=== PATIENT | female | born 1985 | race Caucasian/White ===

== ENCOUNTER → 2017-01-24 | Outpatient (CLI) | payer OTHER | LOC: OD 14:45 | PROVIDERS: ATTEND Physician Assistant Surgical | DX: M54.6 Pain in thoracic spine (principal) | CPT/HCPCS: 72070 ==

== ENCOUNTER 2017-05-25 12:23 | Emergency (ER) | payer OTHER ==
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
[2017-05-25] MEDS ORDERED: KETOROLAC TROMETHAMINE INJ/PF 30 MG/1 ML SDV IM ONE (13:37)
[2017-05-25 13:50] VITALS: BP 125/72
== END 2017-05-25 13:35 | disposition home or self-care (01) ==
LOC: ER 12:23
DX: M54.2 Cervicalgia (principal); M54.5 Low back pain; M62.838 Other muscle spasm; V43.52XA Car driver injured in collision with other type car in traffic accident, initial encounter; G89.29 Other chronic pain; Z79.891 Long term (current) use of opiate analgesic; Z79.899 Other long term (current) drug therapy
CPT/HCPCS: 99283

== ENCOUNTER 2019-04-01 19:37 | Emergency (ER) | payer OTHER ==
[2019-04-01] MEDS ORDERED: METOCLOPRAMIDE HCL ORAL SOLN 10 MG/10 ML UDCUP PO ONE (21:01)
[2019-04-01] MEDS ORDERED: LIDOCAINE 2% VISCOUS SOLN 20 ML UDCUP PO ONE (21:01)
[2019-04-01] MEDS ORDERED: MAG HYDROX/AL HYDROX/SIMETH SUSP 30 ML UDCUP PO ONE (21:01)
[2019-04-01] MEDS ORDERED: NORMAL SALINE 1000 ML 1,000 ML IV ONE (21:03)
--- NOTE | 2019-04-01 21:03 | ER Document Report ---
ED Medical Screen (RME) - General Chief Complaint: Abdominal Pain Stated Complaint: STOMACH PAIN Time Seen by Provider: 04/01/19 20:59 Notes: Patient is a 33-year-old female with extensive history of abdominal surgeries to include gastric bypass, small bowel obstruction and hernia repair. Patient states she has had generalized epigastric abdominal pain for the last 2 weeks. States she also received a cholecystectomy when she had a gastric bypass. Patient is denying any fevers, dysuria, vaginal discharge. GENERAL: Alert, interacts well. No acute distress. ABDOMEN: Soft, generalized epigastric pain noted. Non-distended. Bowel sounds p resent in all 4 quadrants. I have greeted and performed a rapid initial assessment of this patient. A comprehensive ED assessment and evaluation of the patient, analysis of test results and completion of the medical decision making process will be conducted by additional ED providers. I have specifically instructed the patient or family members with the patient to immediately return to any nursing staff should anything change in the patient's condition or with their chief complaint. This medical record was dictated with voice recognizing software. There may be grammatical, syntax errors that are unintended. TRAVEL OUTSIDE OF THE [place] IN LAST 30 DAYS: No - Related Data Allergies/Adverse Reactions: No Known Allergies Allergy (Verified 05/25/17 12:34) Past Medical History Neurological Medical History: Reports: Hx Migraine Renal/ Medical History: Denies: Hx Peritoneal Dialysis Past Surgical History: Reports: Hx Abdominal Surgery - bypass, Hx Section, Hx Cholecystectomy, Hx Orthopedic Surgery - wrist surgery - Immunizations Hx Diphtheria, Pertussis, Tetanus Vaccination: Yes Physical Exam - Vital signs Vitals: Temp Pulse Resp BP Pulse Ox 98.1 F 113 H 16 113/81 97 04/01/19 20:26 04/01/19 20:26 04/01/19 20:04/01/19 20:26 04/01/19 20:26 Course - Vital Signs Vital signs: Temp Pulse Resp BP Pulse Ox 98.1 F 113 H 16 113/81 97 04/01/19 20:26 04/01/19 20:26 04/01/19 20:26 04/01/19 20:26 04/01/19 20:26
[2019-04-01 22:06] LABS: APPEARANCE,URINE CLOUDY; BILIRUBIN,URINE NEGATIVE (NEGATIVE); COLOR,URINE YELLOW; GLUCOSE, URINE 50 mg/dL (NEGATIVE); KETONES,URINE TRACE mg/dL (NEGATIVE); LEUKOCYTE ESTERASE,URINE MODERATE (NEGATIVE); NITRITE,URINE NEGATIVE (NEGATIVE); PROTEIN,URINE 100 mg/dL (NEGATIVE); URINE SPECIFIC GRAVITY 1.034; UROBILINOGEN,URINE NEGATIVE mg/dL (<2.0)
[2019-04-01 22:07] LABS: ABSOLUTE EOSINOPHILS # (AUTO) 0.1 10^3/uL (0.0-0.6); ABSOLUTE MONOCYTES (AUTO) 0.5 10^3/uL (0.1-1.4); ABSOLUTE NEUT (AUTO) 4.9 10^3/uL (1.7-8.2); BASOPHILS % (AUTO) 0.4 % (0-2); EOSINOPHILS % (AUTO) 1.3 % (0-6); HEMATOCRIT 39.4 % (36.0-47.0); HEMOGLOBIN 13.3 g/dL (12.0-15.5); LYMPHOCYTES % (AUTO) 35.2 % (13-45); MEAN CORPUSCULAR HEMOGLOBIN 30.1 pg (27.0-33.4); MEAN CORPUSCULAR HGB CONC 33.8 g/dL (32.0-36.0); MEAN CORPUSCULAR VOLUME 89 fl (80-97); MONOCYTES % (AUTO) 5.8 % (3-13); PLATELET COUNT 405 10^3/uL (150-450); RED BLOOD COUNT 4.42 10^6/uL (3.72-5.28); RED CELL DISTRIBUTION WIDTH 14.4 % (11.5-14.0); SEGMENTED NEUTROPHILS % (AUTO) 57.3 % (42-78); TOTAL CELLS COUNTED % (AUTO) 100 %; WHITE BLOOD COUNT 8.6 10^3/uL (4.0-10.5)
[2019-04-01 22:26] LABS: ALANINE AMINOTRANSFERASE 39 U/L (9-52); ALBUMIN 4.7 g/dL (3.5-5.0); ALKALINE PHOSPHATASE 66 U/L (38-126); ANION GAP 11 (5-19); ASPARTATE AMINO TRANSFERASE 35 U/L (14-36); BILIRUBIN,DIRECT 0.2 mg/dL (0.0-0.4); BILIRUBIN,TOTAL 0.3 mg/dL (0.2-1.3); BLOOD UREA NITROGEN 11 mg/dL (7-20); CALCIUM 9.8 mg/dL (8.4-10.2); CARBON DIOXIDE 29 mmol/L (22-30); CHLORIDE 102 mmol/L (98-107); GLUCOSE 84 mg/dL (75-110); SODIUM 142.3 mmol/L (137-145); TOTAL PROTEIN 7.6 g/dL (6.3-8.2)
[2019-04-01] MEDS ORDERED: ONDANSETRON HCL INJ/PF 4 MG/2 ML SDV IV ONE (23:52)
[2019-04-02] MEDS ORDERED: RINGERS SOLUTION,LACTATED 1,000 ML IV ONE (00:05)
--- NOTE | 2019-04-02 00:58 | ER Document Report ---
ED General - General Chief Complaint: Abdominal Pain Stated Complaint: STOMACH PAIN Time Seen by Provider: 04/01/19 20:59 Primary Care Provider: RANULFO EPSTEIN MD [ACTIVE STAFF] - Follow up in 3-5 days Notes: Patient is a 33-year-old female with history of gastric bypass that presents to the emergency department for chief complaint of epigastric abdominal pain. Patient states she has been having pain in her upper abdomen, worse with food, for the past several weeks, she states she changed her diet, eating smaller meals throughout the day, and shortly after that started having the symptoms, where she has nausea, vomiting, shortly after eating food she feels like nothing is getting through. She does not feel like anything is getting stuck in her throat but feels like if not going past her pouch. She denies having any diarrhea or constipation associated with this. Denies having any fevers, chills, night sweats, headache, lightheadedness or dizziness. Denies any dysuria or hematuria. She states she has had when she thinks is about a 15 pound weight loss over the past month. She currently rates her pain as a 2 out of 10 describes as an aching pain in her epigastric region. Past Medical History: PCOS, chronic low back pain, migraine headaches Past Surgical History: Gastric bypass surgery, laparoscopy, cholecystectomy Social History: Denies current tobacco, alcohol or illicit drug use. Family History: Reviewed and noncontributory for presenting illness Allergies: Reviewed, see documented allergy list. REVIEW OF SYSTEMS: Other than noted above, the 12 point review of systems was reviewed with the patient and were negative, all pertinent findings are included in the HPI. PHYSICAL EXAMINATION: Vital signs reviewed, nursing noted reviewed. GENERAL: Well-appearing, well-nourished and in no acute distress. HEAD: Atraumatic, normocephalic. EYES: Eyes appear normal, extraocular movements intact, sclera anicteric, conjunctiva are normal. ENT: nares patent, oropharynx clear without exudates. Moist mucous membranes. NECK: Normal range of motion, supple without lymphadenopathy LUNGS: Breath sounds clear to auscultation bilaterally and equal. No wheezes rales or rhonchi. HEART: Regular rate and rhythm without murmurs ABDOMEN: Soft, mild epigastric tenderness to palpation, normoactive bowel sounds. No rebound, guarding, or rigidity. No masses appreciated. No palpable hernia with Valsalva. EXTREMITIES: Nontender, good range of motion, no pitting or edema. NEUROLOGICAL: No focal neurological deficits. Moves all extremities spontaneously Motor and sensory grossly intact on exam. PSYCH: Normal mood, normal affect. SKIN: Warm, Dry, normal turgor, no rashes or lesions noted on exposed skin TRAVEL OUTSIDE OF THE [place] IN LAST 30 DAYS: No - Related Data Allergies/Adverse Reactions: No Known Allergies Allergy (Verified 05/25/17 12:34) Past Medical History - Social History Smoking Status: Never Smoker Chew tobacco use (# tins/day): No Frequency of alcohol use: None Drug Abuse: None Family History: Reviewed & Not Pertinent Patient has suicidal ideation: No Patient has homicidal ideation: No Neurological Medical History: Reports: Hx Migraine Renal/ Medical History: Denies: Hx Peritoneal Dialysis Past Surgical History: Reports: Hx Abdominal Surgery - bypass, Hx Section, Hx Cholecystectomy, Hx Orthopedic Surgery - wrist surgery - Immunizations Hx Diphtheria, Pertussis, Tetanus Vaccination: Yes Physical Exam - Vital signs Vitals: Temp Pulse Resp BP Pulse Ox 98.1 F 113 H 16 113/81 97 04/01/19 20:26 04/01/19 20:26 04/01/19 20:26 04/01/19 20:26 04/01/19 20:26 Course - Re-evaluation Re-evalutation: Patient seen and examined vital signs reviewed. Laboratory data and/or imaging were ordered as appropriate for the patient's presenting symptoms and complaint, with consideration of any critical or life threatening conditions that may be associated with their obtained history and exam as noted above. Patient was treated with GI cocktail, IV fluids and Zofran Results were reviewed when available and demonstrated unremarkable work-up, CBC, CMP and lipase are unremarkable, abdominal films were negative as well. The patient was re-evaluated and was stable, appeared comfortable, abdomen is soft, nondistended and nontender. Evaluation was most consistent with epigastric abdominal pain, likely gastritis versus gastroparesis, will prescribe the patient Reglan, and omeprazole and a dvised follow-up with gastroenterology which she was agreeable to. Results were discussed with the patient at this point, after careful consideration I feel that that patient can be discharged from the emergency department, the patient was educated treatments and reasons to return to the emergency department based on their presumed diagnosis as noted above, they were advised to followup with a primary care physician in 2-3 days. Patient was agreeable to plan of care. *Note is created using voice recognition software and may contain spelling, syntax or grammatical errors. Laboratory 04/01/19 04/01/19 04/01/19 21:21 21:21 21:47 WBC 8.6 RBC 4.42 Hgb 13.3 Hct 39.4 MCV 89 MCH 30.1 MCHC 33.8 RDW 14.4 H Plt Count 405 Seg Neutrophils % 57.3 Lymphocytes % 35.2 Monocytes % 5.8 Eosinophils % 1.3 Basophils % 0.4 Absolute Neutrophils 4.9 Absolute Lymphocytes 3.0 Absolute Monocytes 0.5 Absolute Eosinophils 0.1 Absolute Basophils 0.0 Sodium 142.3 Potassium 4.0 Chloride 102 Carbon Dioxide 29 Anion Gap 11 BUN 11 Creatinine 0.52 Est GFR ( Amer) > 60 Est GFR (Non-Af Amer) > 60 Glucose 84 Calcium 9.8 Total Bilirubin 0.3 Direct Bilirubin 0.2 Neonat Total Bilirubin Not Reportable Neonat Direct Bilirubin Not Reportable Neonat Indirect Bili Not Reportable AST 35 ALT 39 Alkaline Phosphatase 66 Total Protein 7.6 Albumin 4.7 Lipase 213.0 Urine Color YELLOW Urine Appearance CLOUDY Urine pH 5.0 Ur Specific [place] 1.034 Urine Protein 100 H Urine Glucose (UA) 50 H Urine Ketones TRACE H Urine Blood NEGATIVE Urine Nitrite NEGATIVE Urine Bilirubin NEGATIVE Urine Urobilinogen NEGATIVE Ur Leukocyte Esterase MODERATE H Urine WBC (Auto) 21 Urine RBC (Auto) 8 Urine Bacteria (Auto) TRACE Squamous Epi Cells Auto 36 Urine Mucus (Auto) MOD Urine Ascorbic Acid NEGATIVE Urine HCG, Qual NEGATIVE Abdomen X-Ray 04/02/19 00:05 IMPRESSION: Nonspecific nonobstructive bowel gas pattern. There is a distended nondilated loop of small bowel in the left hemiabdomen. - Vital Signs Vital signs: Temp Pulse Resp BP Pulse Ox 98.0 F 90 16 118/80 100 04/02/19 01:33 04/02/19 01:33 04/02/19 01:33 04/02/19 01:33 04/02/19 01:33 - Laboratory Result Diagrams: 04/01/19 21:21 04/01/19 21:21 Laboratory results interpreted by me: 04/01/19 04/01/19 21:21 21:47 RDW 14.4 H Urine Protein 100 H Urine Glucose (UA) 50 H Urine Ketones TRACE H Ur Leukocyte Esterase MODERATE H Discharge - Discharge Clinical Impression: Abdominal pain Qualifiers: Abdominal location: epigastric Qualified Code(s): R10.13 - Epigastric pain Vomiting Qualifiers: Vomiting type: unspecified Vomiting Intractability: non-intractable Nausea presence: with nausea Qualified Code(s): R11.2 - Nausea with vomiting, unspecified Condition: Stable Disposition: HOME, SELF-CARE Instructions: Abdominal Pain ([facility]), Vomiting ([facility]) Additional Instructions: Please follow-up with a dye line operator, one has been provided but you can follow-up with the one in [place] that you saw in the past if you are going to be moving back there, please take the prescribed medications as directed, to help with your nausea at home as well as your abdominal pain. If your symptoms wo rsen or are not improving over the next several days, do not hesitate to return to the emergency department. Prescriptions: Metoclopramide HCl [Reglan 10 mg Tablet] 1 tab PO Q8H PRN #25 tablet PRN Reason: nausea/vomiting RX: Omeprazole 40 mg PO DAILY #30 capsule.dr Referrals: RANULFO EPSTEIN MD [ACTIVE STAFF] - Follow up in 3-5 days
--- NOTE | 2019-04-02 01:06 | RADIOLOGY REPORT (SQ) ---
EXAM DESCRIPTION: X-ray abdomen two views CLINICAL DATA: 33-year-old female with epigastric abdominal pain and vomiting. TECHNICAL DATA: Supine and upright views of the abdomen were performed on 04/02/2019 at 12:48 AM. Comparison: None. FINDINGS: The bowel gas pattern is nonspecific and nonobstructive. There is a distended nondilated loop of small bowel in the left hemiabdomen. No pathologic abdominal or pelvic calcifications are identified. There may be surgical sutures in the left upper quadrant. There is a surgical clip in the left hemiabdomen. No abnormal air collections are identified. No free intraperitoneal air or significant air-fluid levels are identified. No focal soft tissue abnormalities are seen. Several soft tissue piercings are noted. No acute osseous abnormalities are identified. IMPRESSION: Nonspecific nonobstructive bowel gas pattern. There is a distended nondilated loop of small bowel in the left hemiabdomen.
[2019-04-02 01:36] VITALS: BP 118/80
== END 2019-04-02 01:39 | disposition home or self-care (01) ==
LOC: ER 19:37
DX: R10.13 Epigastric pain (principal); R11.2 Nausea with vomiting, unspecified; Z98.84 Bariatric surgery status; Z90.49 Acquired absence of other specified parts of digestive tract
CPT/HCPCS: 99284; 96361; 96374; 36415; 83690; 85025; 81025; 80053; 81001; 74019; J3490; J2405; J7030; J7120